=== PATIENT | female | born 1950 | race Caucasian/White ===

== ENCOUNTER 2022-12-22 16:05 | Emergency (ER) | payer OTHER ==
[~2022-12-22] VITALS: Ht 162.6 cm; Wt 136.1 kg
[2022-12-22 16:13] VITALS: BP_SYST 172
[2022-12-22] MEDS ORDERED: HYDROcodone/ACETAMIN 10-325 MG TAB PO ONE (16:30)
[2022-12-22] MEDS ORDERED: KETOROLAC TROMETHAMINE 60 MG/2 ML VIAL IM ONE (16:30)
[2022-12-22 17:27] VITALS: BP_SYST 172
== END 2022-12-22 17:26 | disposition home or self-care (01) ==
LOC: SED 16:05
DX: M19.011 Primary osteoarthritis, right shoulder (principal); E11.9 Type 2 diabetes mellitus without complications
CPT/HCPCS: 99283; 73030; 96372; J1885

== ENCOUNTER 2024-03-15 02:46 | Inpatient (IN) | payer OTHER ==
[~2024-03-15] VITALS: Ht 144.8 cm; Wt 163.3 kg
[2024-03-15 03:22] VITALS: BP_SYST 184; PULSE 73; RESP 22; TEMP 97.3; O2SAT 99
[2024-03-15] MEDS: ACETAMINOPHEN 500 MG TABLET PO ONE (03:33)
[2024-03-15] MEDS: DIAZEPAM 5 MG TABLET (VALIUM) PO ONE (03:34)
[2024-03-15] MEDS: KETOROLAC TROMETHAMINE 30 MG VIAL IVP ONE (03:34)
[2024-03-15 03:57] LABS: BASOPHILS # (AUTO) 0.1 K/uL (0.0-0.2); BASOPHILS % (AUTO) 0.8 % (0.0-2.0); EOSINOPHILS # (AUTO) 0.2 K/uL (0.0-0.4); HEMATOCRIT 30.3 % (36-48); HEMOGLOBIN 10.2 g/dL (12.0-16.0); LYMPHOCYTES # (AUTO) 1.4 K/uL (1.0-5.5); LYMPHOCYTES % (AUTO) 16.8 % (20.5-51.5); MEAN CORPUSCULAR HEMOGLOBIN 31 pg (27-31); MEAN CORPUSCULAR HGB CONC 34 % (32-36); MEAN CORPUSCULAR VOLUME 93 fL (79.0-98.0); MONOCYTES # (AUTO) 0.9 K/uL (0.0-1.0); MONOCYTES % (AUTO) 10.8 % (1.7-9.3); NEUTROPHILS # (AUTO) 5.6 K/uL (1.8-7.7); NEUTROPHILS % (AUTO) 69.6 % (40.0-70.0); PLATELET COUNT (AUTO) 226 K/uL (130-430); RED BLOOD CELL COUNT(AUTO) 3.27 MIL/uL (4.2-6.2); RED CELL DISTRIBUTION WIDTH 13.8 % (9.0-15.0); WHITE BLOOD COUNT (AUTO) 8.1 K/uL (4.8-10.8)
[2024-03-15 04:06] LABS: ANION GAP 4 (5-15); CALCIUM 8.9 mg/dL (8.4-11.0); CARBON DIOXIDE 28 mmol/L (23-29); CHLORIDE 87 mmol/L (98-107); CREATININE 0.94 mg/dL (0.55-1.30); GLUCOSE 110 mg/dL (74-106); POTASSIUM 4.8 mmol/L (3.5-5.1); UREA NITROGEN, BLOOD 24 mg/dL (8-21)
[2024-03-15 04:16] LABS: SODIUM SERUM 119 mmol/L (136-145)
[2024-03-15] MEDS: NACL 0.9% 1,000 ML IV ONE ×2 (04:37→08:56)
[2024-03-15] MEDS: MORPHINE 4 MG INJ. 4 MG/ML VIAL IVP ONE (05:37)
[2024-03-15] MEDS ORDERED: HYDR25TA4 PO (06:07)
[2024-03-15] MEDS ORDERED: METO25TA6 PO (06:07)
[2024-03-15] MEDS ORDERED: ATOR40TA68 PO (06:07)
[2024-03-15] MEDS ORDERED: LEVO125T8 PO (06:07)
[2024-03-15] MEDS ORDERED: MONT-40 PO (06:07)
[2024-03-15] MEDS: traMADol HCL HCL 50 MG TABLET (ULTRAM) PO PRN (14:36)
[2024-03-15] MEDS: PANTOPRAZOLE SODIUM 40 MG/VIAL (PROTONIX) IVP ONE (14:40)
[2024-03-15] MEDS: FUROSEMIDE 20 MG TABLET PO ONE (14:41)
[2024-03-15 15:40] LABS: ANION GAP 7 (5-15); CARBON DIOXIDE 25 mmol/L (23-29); CHLORIDE 90 mmol/L (98-107); CREATININE 0.88 mg/dL (0.55-1.30); GLUCOSE 106 mg/dL (74-106); POTASSIUM 4.4 mmol/L (3.5-5.1); SODIUM SERUM 122 mmol/L (136-145); UREA NITROGEN, BLOOD 24 mg/dL (8-21)
[2024-03-15 16:21] LABS: BILIRUBIN,URINE NEGATIVE (NEGATIVE); BLOOD, URINE NEGATIVE (NEGATIVE); CLARITY/URINE CLEAR (CLEAR); COLOR,URINE YELLOW (YELLOW); GLUCOSE,URINE NEGATIVE (NEGATIVE); KETONES,URINE NEGATIVE (NEGATIVE); LEUKOCYTE ESTERASE ,URINE NEGATIVE (NEGATIVE); NITRITE, URINE NEGATIVE (NEGATIVE); PROTEIN URINE NEGATIVE (NEGATIVE); UROBILINOGEN,URINE 0.2 (0.2-1.0)
[2024-03-15] MEDS: SUCRALFATE 1 GM/10 ML UDC GT SCH (17:24)
[2024-03-15 17:35] VITALS: BP_SYST 102; PULSE 66; RESP 18; TEMP 97.6; O2SAT 96
[2024-03-15 18:26] LABS: ANION GAP 6 (5-15); CALCIUM 8.2 mg/dL (8.4-11.0); CARBON DIOXIDE 24 mmol/L (23-29); CHLORIDE 91 mmol/L (98-107); CREATININE 0.88 mg/dL (0.55-1.30); GLUCOSE 98 mg/dL (74-106); POTASSIUM 4.8 mmol/L (3.5-5.1); SODIUM SERUM 121 mmol/L (136-145); UREA NITROGEN, BLOOD 23 mg/dL (8-21)
[2024-03-15 20:00] VITALS: BP_SYST 169; PULSE 66; RESP 20; TEMP 98.6; O2SAT 99
[2024-03-15] MEDS: ATORVASTATIN 20 MG TABLET PO SCH (20:31)
[2024-03-15] MEDS: FUROSEMIDE 20 MG TABLET PO SCH (20:32)
[2024-03-15] MEDS: METOPROLOL TARTRATE 25 MG TABLET PO SCH (20:32)
[2024-03-16] VITALS: BP_SYST 152; PULSE 64; RESP 18; TEMP 97.4; O2SAT 100
[2024-03-16] MEDS: LEVOTHYROXINE SODIUM 0.125 MG TABLET PO SCH (05:56)
[2024-03-16] MEDS: NACL 0.9% 1,000 ML IV SCH (07:48)
[2024-03-16 08:06] LABS: ANION GAP 6 (5-15); CALCIUM 8.7 mg/dL (8.4-11.0); CARBON DIOXIDE 27 mmol/L (23-29); CHLORIDE 92 mmol/L (98-107); CREATININE 0.99 mg/dL (0.55-1.30); GLUCOSE 91 mg/dL (74-106); POTASSIUM 4.2 mmol/L (3.5-5.1); SODIUM SERUM 125 mmol/L (136-145); THYROID STIMULATING HORMONE 45.19 uIu/mL (0.34-4.82); UREA NITROGEN, BLOOD 20 mg/dL (8-21); URIC ACID 4.3 mg/dL (2.4-7.0)
[2024-03-16] MEDS: amLODIPine BESYLATE 5 MG TABLET PO SCH (08:35)
[2024-03-16] MEDS: MONTELUKAST 10 MG TABLET PO SCH (08:36)
[2024-03-16 08:47] LABS: BASOPHILS % (AUTO) 0.8 % (0.0-2.0); EOSINOPHILS # (AUTO) 0.2 K/uL (0.0-0.4); LYMPHOCYTES # (AUTO) 1.1 K/uL (1.0-5.5); MONOCYTES # (AUTO) 0.5 K/uL (0.0-1.0); NEUTROPHILS # (AUTO) 3.3 K/uL (1.8-7.7); RED CELL DISTRIBUTION WIDTH 13.8 % (9.0-15.0)
[2024-03-16 08:50] LABS: HEMATOCRIT 30.6 % (36-48); HEMOGLOBIN 10.2 g/dL (12.0-16.0); LYMPHOCYTES % (AUTO) 21.1 % (20.5-51.5); MEAN CORPUSCULAR HEMOGLOBIN 31 pg (27-31); MEAN CORPUSCULAR HGB CONC 33 % (32-36); MEAN CORPUSCULAR VOLUME 93 fL (79.0-98.0); MONOCYTES % (AUTO) 10.3 % (1.7-9.3); NEUTROPHILS % (AUTO) 63.8 % (40.0-70.0); PLATELET COUNT (AUTO) 240 K/uL (130-430); RED BLOOD CELL COUNT(AUTO) 3.29 MIL/uL (4.2-6.2)
[2024-03-16] MEDS ORDERED: HYDROCHLOROTHIAZIDE 25 MG TABLET (HCTZ) PO SCH (09:00)
[2024-03-16 09:36] LABS: WHITE BLOOD COUNT (AUTO) 5.1 K/uL (4.8-10.8)
[2024-03-16] MEDS: PANTOPRAZOLE SODIUM 40 MG/VIAL (PROTONIX) IVP SCH (10:27)
[2024-03-16] MEDS: BUMEX 1 MG/4 ML VIAL IVP ONE (10:34)
[2024-03-16 11:24] VITALS: BP_SYST 115; PULSE 63; RESP 16; TEMP 97; O2SAT 96
[2024-03-16 12:21] LABS: ANION GAP 5 (5-15); CALCIUM 8.4 mg/dL (8.4-11.0); CARBON DIOXIDE 27 mmol/L (23-29); CHLORIDE 94 mmol/L (98-107); CREATININE 0.81 mg/dL (0.55-1.30); GLUCOSE 94 mg/dL (74-106); POTASSIUM 4.4 mmol/L (3.5-5.1); SODIUM SERUM 126 mmol/L (136-145); UREA NITROGEN, BLOOD 19 mg/dL (8-21)
[2024-03-16 15:48] VITALS: BP_SYST 124; PULSE 65; RESP 16; TEMP 97.6; O2SAT 98
[2024-03-16 20:00] VITALS: O2SAT 96
[2024-03-16 20:24] LABS: ANION GAP 3 (5-15); CALCIUM 8.5 mg/dL (8.4-11.0); CARBON DIOXIDE 29 mmol/L (23-29); CHLORIDE 94 mmol/L (98-107); CREATININE 1.06 mg/dL (0.55-1.30); GLUCOSE 118 mg/dL (74-106); POTASSIUM 4.4 mmol/L (3.5-5.1); SODIUM SERUM 126 mmol/L (136-145); UREA NITROGEN, BLOOD 27 mg/dL (8-21)
[2024-03-16 20:32] VITALS: BP_SYST 132; PULSE 64; RESP 16; TEMP 98.2; O2SAT 96
[2024-03-17 01:43] VITALS: BP_SYST 134; PULSE 55; RESP 18; TEMP 97.5; O2SAT 99
[2024-03-17] MEDS: LEVOTHYROXINE SODIUM 0.15 MG TABLET PO SCH (06:14)
[2024-03-17 07:58] LABS: ALANINE AMINOTRANSFERASE 15 U/L (12-78); ANION GAP 9 (5-15); ASPARTATE AMINOTRANSFERASE 19 U/L (10-37); CALCIUM 8.6 mg/dL (8.4-11.0); CARBON DIOXIDE 27 mmol/L (23-29); CHLORIDE 93 mmol/L (98-107); CREATININE 0.87 mg/dL (0.55-1.30); GLUCOSE 92 mg/dL (74-106); POTASSIUM 4.2 mmol/L (3.5-5.1); SODIUM SERUM 129 mmol/L (136-145); TOTAL BILIRUBIN 0.5 mg/dL (0.0-1.0); TOTAL PROTEIN, SERUM 7.1 g/dL (6.4-8.3); UREA NITROGEN, BLOOD 21 mg/dL (8-21)
[2024-03-17 08:00] VITALS: O2SAT 100
[2024-03-17 08:08] LABS: EOSINOPHILS # (AUTO) 0.2 K/uL (0.0-0.4); HEMOGLOBIN 10.4 g/dL (12.0-16.0); MEAN CORPUSCULAR VOLUME 92 fL (79.0-98.0); NEUTROPHILS # (AUTO) 3.5 K/uL (1.8-7.7); RED CELL DISTRIBUTION WIDTH 13.7 % (9.0-15.0)
[2024-03-17 08:12] LABS: BASOPHILS % (AUTO) 0.8 % (0.0-2.0); EOSINOPHILS % (AUTO) 3.5 % (0.0-4.0); HEMATOCRIT 30.9 % (36-48); LYMPHOCYTES # (AUTO) 1.2 K/uL (1.0-5.5); LYMPHOCYTES % (AUTO) 21.3 % (20.5-51.5); MEAN CORPUSCULAR HEMOGLOBIN 31 pg (27-31); MEAN CORPUSCULAR HGB CONC 34 % (32-36); MONOCYTES # (AUTO) 0.5 K/uL (0.0-1.0); MONOCYTES % (AUTO) 9.9 % (1.7-9.3); NEUTROPHILS % (AUTO) 64.5 % (40.0-70.0); PLATELET COUNT (AUTO) 258 K/uL (130-430); RED BLOOD CELL COUNT(AUTO) 3.35 MIL/uL (4.2-6.2); WHITE BLOOD COUNT (AUTO) 5.4 K/uL (4.8-10.8)
[2024-03-17 11:22] VITALS: BP_SYST 147; PULSE 53; RESP 16; TEMP 97.8; O2SAT 98
[2024-03-17 15:25] VITALS: BP_SYST 122; PULSE 58; RESP 16; TEMP 97.4; O2SAT 97
[2024-03-17 20:00] VITALS: BP_SYST 117; PULSE 52; RESP 20; TEMP 97.9; O2SAT 100; O2SAT 95
[2024-03-17] MEDS: MAG-AL HYDROX/SIMETH 30 ML UDC PO SCH (23:58)
[2024-03-18] VITALS: BP_SYST 140; PULSE 62; RESP 18; TEMP 97.3; O2SAT 100
[2024-03-18 08:00] VITALS: O2SAT 98
[2024-03-18 10:34] LABS: BASOPHILS # (AUTO) 0.1 K/uL (0.0-0.2); BASOPHILS % (AUTO) 0.8 % (0.0-2.0); EOSINOPHILS # (AUTO) 0.2 K/uL (0.0-0.4); EOSINOPHILS % (AUTO) 3.3 % (0.0-4.0); HEMOGLOBIN 9.4 g/dL (12.0-16.0); LYMPHOCYTES # (AUTO) 0.9 K/uL (1.0-5.5); LYMPHOCYTES % (AUTO) 13.6 % (20.5-51.5); MEAN CORPUSCULAR HEMOGLOBIN 32 pg (27-31); MEAN CORPUSCULAR HGB CONC 34 % (32-36); MONOCYTES # (AUTO) 0.8 K/uL (0.0-1.0); MONOCYTES % (AUTO) 11.5 % (1.7-9.3); NEUTROPHILS # (AUTO) 4.6 K/uL (1.8-7.7); NEUTROPHILS % (AUTO) 70.8 % (40.0-70.0); PLATELET COUNT (AUTO) 225 K/uL (130-430); RED BLOOD CELL COUNT(AUTO) 2.98 MIL/uL (4.2-6.2); RED CELL DISTRIBUTION WIDTH 13.7 % (9.0-15.0); WHITE BLOOD COUNT (AUTO) 6.5 K/uL (4.8-10.8)
[2024-03-18 10:42] LABS: MEAN CORPUSCULAR VOLUME 94 fL (79.0-98.0)
[2024-03-18 11:01] LABS: ANION GAP 7 (5-15); CALCIUM 8.3 mg/dL (8.4-11.0); CARBON DIOXIDE 27 mmol/L (23-29); CHLORIDE 97 mmol/L (98-107); CREATININE 0.86 mg/dL (0.55-1.30); GLUCOSE 93 mg/dL (74-106); POTASSIUM 4.1 mmol/L (3.5-5.1); SODIUM SERUM 131 mmol/L (136-145); UREA NITROGEN, BLOOD 21 mg/dL (8-21)
[2024-03-18 11:10] VITALS: BP_SYST 133; PULSE 65; RESP 16; TEMP 96.1; O2SAT 100
[2024-03-18] MEDS ORDERED: AMLO5TAB4 PO (11:42)
[2024-03-18] MEDS ORDERED: PANT40TA45 PO (11:42)
[2024-03-18] MEDS ORDERED: SUCR1ORA4 GT (11:42)
[2024-03-18] MEDS ORDERED: TRAM50TA2 PO (11:46)
[2024-03-18 13:02] VITALS: BP_SYST 125; PULSE 75; RESP 16; TEMP 96.4; O2SAT 98
== END 2024-03-18 13:24 | disposition home health service (06) | DRG 644 ==
LOC: SED 02:46 → SMU 05:45
PROVIDERS: ADMIT Specialist; ATTEND Specialist
DX: E03.9 Hypothyroidism, unspecified (principal); E87.1 Hypo-osmolality and hyponatremia; Z68.45 Body mass index [BMI] 70 or greater, adult; E66.01 Morbid (severe) obesity due to excess calories; K29.70 Gastritis, unspecified, without bleeding; I10 Essential (primary) hypertension; E78.5 Hyperlipidemia, unspecified; J45.909 Unspecified asthma, uncomplicated; E87.8 Other disorders of electrolyte and fluid balance, not elsewhere classified; M13.862 Other specified arthritis, left knee; M13.861 Other specified arthritis, right knee; K21.9 Gastro-esophageal reflux disease without esophagitis; Z79.899 Other long term (current) drug therapy; Z88.8 Allergy status to other drugs, medicaments and biological substances; Z91.148 Patient's other noncompliance with medication regimen for other reason; E78.00 Pure hypercholesterolemia, unspecified
CPT/HCPCS: 36415; 71045; 73560; 80048; 80053; 81001; 81003; 82533; 83880; 83930; 83935; 84302; 84443; 84484; 84550; 85025; 93005; 96375; 97110-GP; 97116-GP; 97163-GP; 97530-GP; 99285; J1885; J2270; J2470; J3490